=== PATIENT | female | born 1965 | race Two or more races ===

== ENCOUNTER 2021-12-05 15:00 | Outpatient (CLI) | payer OTHER | END 2021-12-05 15:09 | disposition home or self-care (01) | LOC: RAD 15:00 | PROVIDERS: ATTEND Internal Medicine Gastroenterology | DX: K59.00 Constipation, unspecified (principal) ==

== ENCOUNTER 2022-03-21 09:39 | Outpatient (CLI) | payer OTHER | END 2022-03-21 09:41 | disposition home or self-care (01) | LOC: TOM 09:39 | PROVIDERS: ATTEND Family Medicine | DX: R51.9 Headache, unspecified (principal) ==